=== PATIENT | male | born 1965 | race Caucasian/White ===

== ENCOUNTER → 2021-12-27 15:28 | Outpatient (BNVA) | payer MEDICAID, SELFPAY | PROVIDERS: Family Provider Nurse Practitioner Family; PCP Nurse Practitioner Family; Visit Provider Internal Medicine | DX: D64.9 Anemia, unspecified (principal); Z86.010 Personal history of colon polyps | CPT/HCPCS: 82607; 82746; 83550; 84443; 85045 ==

== ENCOUNTER 2022-01-02 06:04 | Day surgery (SDC) | payer MEDICAID, SELFPAY ==
[2021-12-29 15:45] VITALS: BMI 36.6
[2022-01-02 06:43] VITALS: BP 148/87; PULSE 74; RESP 18; TEMP 36.1; O2SAT 97
[2022-01-02] MEDS: sodium chloride 0.9% 1,000 ML 30 ML IV (06:47)
--- NOTE | 2022-01-02 07:02 | P.ANESASSM_ITS ---
Pre-Anesthetic Assessment Height/Weight: Height 1.83 m Weight 122.47 kg Temp Pulse Resp BP Pulse Ox 97.0 F L 74 18 148/87 97 01/02/22 06:43 01/02/22 06:43 01/02/22 06:43 01/02/22 06:43 01/02/22 06:43 Preop Diagnosis: anemia. Polyps. Operation Date: 01/02/22 08:00 Proposed Procedures p EGD [id number](Not Applicable) - Frank Rudd MD s Colonoscopy(Not Applicable) - Frank Rudd MD Familial anesthetic complications: None Was Beta Eve taken within 24 hours: Yes Was Clonidine taken within 24 hours: N/A Last intake: Intake Last Liquid Date 01/02/22 Last Liquid Time 04:00 Last Solid Date 01/01/22 Last Solid Time 08:00 Social No alcohol and No tobacco Exam alert, oriented x 3, clear to auscultation bilaterally and regular rate & rhythm Airway Mallampati: Class IV Dentition: other (no teeth) Pulmonary None reported CV/HEM Hypertension None reported Hepatic None reported GI None reported Metabolic Diabetes Mellitus, Hyperlipidemia and Morbid Obesity [facility] [place] None reported Neuropsych None reported Anesthetic Plan ASA status: 3 Anesthesia: MAC Risk of > 500 ml blood loss (7ml/kg in children): No Medications/Allergies Home Medications Medication Instructions Recorded Confirmed Last Taken Type carvedilol 25 mg tablet See Rx Instructions .ROUTE .COMPLEX 12/08/21 12/29/21 01/01/22 History gabapentin 300 mg capsule 300 mg PO TID 12/08/21 12/29/21 01/01/22 History hydrochlorothiazide 25 mg tablet 25 mg PO DAILY 12/08/21 12/29/21 01/01/22 History lantus 50 units INJECTION DAILY 12/08/21 12/29/21 01/01/22 History lisinopril 40 mg tablet 40 mg PO DAILY 12/08/21 12/29/21 01/01/22 History multivitamin (Daily Multi-Vitamin) 1 tab PO DAILY 12/08/21 12/29/21 01/01/22 History simvastatin 20 mg tablet 20 mg PO QPM 12/29/21 12/29/21 01/01/22 History Allergies Allergy/AdvReac Type Severity Reaction Status Date / Time No Known Allergies Allergy Verified 12/29/21 15:47 Current Medications Generic Name Dose Route Start Last Admin Trade Name Freq PRN Reason Stop Dose Admin Sodium Chloride 1,000 mls @ 30 mls/hr 01/02/22 06:30 01/02/22 06:47 Sodium Chloride 0.9% IV 01/03/22 06:29 30 mls/hr .Q24H MELE Administration Data Anesthesia Cardiac Studies: No Data to Display
--- NOTE | 2022-01-02 07:52 | W.PM.OPSFHP ---
Same Day Surgery H&P Indication for Procedure/HPI DATE OF PROCEDURE: January 02, 2022 CHIEF COMPLAINT/INDICATIONFOR SURGICAL PROCEDURE: Anemia and history of polyp PREOP DIAGNOSIS: anemia. Polyps. PLANNED PROCEDURE: Operation Date: 01/02/22 08:00 Proposed Procedures p EGD [id number](Not Applicable) - Frank Rudd MD s Colonoscopy(Not Applicable) - Frank Rudd MD Medications/Allergies* Home Medications Medication Instructions Recorded Confirmed Type carvedilol 25 mg tablet See Rx Instructions .ROUTE .COMPLEX 12/08/21 12/29/21 History gabapentin 300 mg capsule 300 mg PO TID 12/08/21 12/29/21 History hydrochlorothiazide 25 mg tablet 25 mg PO DAILY 12/08/21 12/29/21 History lantus 50 units INJECTION DAILY 12/08/21 12/29/21 History lisinopril 40 mg tablet 40 mg PO DAILY 12/08/21 12/29/21 History multivitamin (Daily Multi-Vitamin) 1 tab PO DAILY 12/08/21 12/29/21 History simvastatin 20 mg tablet 20 mg PO QPM 12/29/21 12/29/21 History Allergies/Adverse Reactions Allergy/AdvReac Type Severity Reaction Status Date / Time No Known Allergies Allergy Verified 12/29/21 15:47 Current Medications: Generic Name Dose Route Start Last Admin Trade Name Joaquin PRN Reason Stop Dose Admin Sodium Chloride 1,000 mls @ 30 mls/hr 01/02/22 06:30 01/02/22 06:47 Sodium Chloride 0.9% IV 01/03/22 06:29 30 mls/hr .Q24H MELE Administration Pertinent Exam Findings alert, oriented x 3, clear to auscultation bilaterally, regular rate & rhythm, operative site marked and procedure specific exam findings Recommendations Surgery/Procedure today Coding Level of Care Code Acute [employer] for Elisha Yee
[2022-01-02] MEDS: EPINEPHrine 1 mg/mL INJ XX (08:30)
[2022-01-02 08:52] VITALS: BP 122/71; PULSE 60; RESP 20; TEMP 36.8; O2SAT 91
[2022-01-02 09:00] VITALS: BP 123/72; PULSE 52; RESP 20; O2SAT 92
--- NOTE | 2022-01-02 09:05 | CT_ITS ---
WS: [id number] CT ABDOMEN AND PELVIS WITH CONTRAST HISTORY: masses in the sigmoid colon TECHNIQUE: Imaging performed of the abdomen and pelvis with IV contrast. Single phase imaging of the abdomen. Coronal and sagittal reformats are submitted. All CT scans at [facility] use at [address] one of these dose optimization techniques: automated exposure control; mA and/or kV adjustment per patient size (includes targeted exams where dose is matched to clinical indication); or iterative re construction. IV CONTRAST: Omnipaque 300; 95 mL IV. Oral contrast: Yes. DLP: 1928.3 mGy.cm COMPARISON: None available. Lower thorax: Lung bases are clear. Normal-sized heart. Very small pericardial effusion or pericardia l thickening. No hiatal hernia. Liver/biliary system: Normal size with no intrahepatic dilatation. Normal portal vein enhancement. Gallbladder: Normal. No gallstones or wall thickening. No pericholecystic fluid. Pancreas: Normal size pancreas and pancreatic duct. No adjacent inflammation. Spleen: Normal size with granulomata. Adrenal glands: Normal. Right kidney: Severe atrophy RIGHT kidney. There is still a small amount of enhancement within the co rtex. Mild perinephric stranding. Mild dilatation of the renal pelvis and proximal ureter. Change in caliber at the UP junction. Left kidney: Normal size kidney with numerous low-attenuation masses. Some of these masses cannot be further characterized. Cortical based solid mass in the lower pole measures 2.2 x 1.7 cm and may repr esent early renal cell neoplasm. Additional low-attenuation masses with the largest measuring 5.2 x 4 .8 cm in the lower pole. This is probably a cyst. No obstruction of the kidney. Aorta: Mild atherosclerosis with no aneurysm. Lymphadenopathy: None. Free fluid: None. GI tract: Moderately well distended stomach with oral contrast. No small bowel obstruction. The appen stephen is not definitely identified. The cecum is mobile and lies in the mid abdomen. There is no obstru ction. There is mild dilatation of the colon with air from the recent colonoscopy. No focal mass abut s identified. There is a tiny filling defect measuring 6 mm in the medially displaced cecum. This may be retained fecal material or tiny polyp. There are numerous diverticula throughout the colon. There are several clips from the recent biopsy performed during the colonoscopy in the descending colon. T here is a small amount of wall thickening measuring up to 1.6 cm in diameter and extending over lengt h of 3.5 cm. No free air. Abdominal wall: Ventral abdominal wall hernia contains fat only Pelvis: Well-distended urinary bladder. No free fluid or abscess. Bones: Unremarkable. CT/CT abdomen pelvis w con* [id number] IMPRESSION: 1. No free air or free fluid. 2. Focal mucosal thickening involving the distal descending colon at the site of recently placed clips at the biopsy site. The area of soft tissue thickening measures 1.6 cm in diameter extends over length of 3.5 cm. Differential includ es post biopsy changes and early colonic neoplasm. 3. Numerous indeterminate masses in the LEFT kidney. In the lower pole there i s a solid-appearing mass measuring 2.2 x 1.7 cm which could be an early renal c ell neoplasm. Additional indeterminate low-attenuation masses may be cysts. Rec ommend follow-up renal ultrasound to characterize further. 4. Severe atrophy RIGHT kidney. 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 5. Normal adrenal glands and liver.
[2022-01-02] MEDS: ferric carboxy (IVPB) 750 MG in sodium chloride 0.9% (100 ml) 100 ML 345 MG IV (09:18)
[2022-01-02 09:20] VITALS: BP 149/82; PULSE 68; RESP 20; O2SAT 97
[2022-01-02 10:30] VITALS: BP 155/104; PULSE 67; RESP 20; O2SAT 97
[2022-01-02 10:32] LABS: Carcinoembryonic Antigen 2.1 ng/mL (0.0-4.7)
[2022-01-02 11:00] VITALS: BP 158/99; PULSE 70; RESP 20; O2SAT 97
[2022-01-02] MEDS: iohexol 300 mg/mL 100 mL Btl IV (11:45)
[2022-01-02] MEDS: iohexol 300 mg/mL 50 mL Btl PO (11:45)
--- NOTE | 2022-01-02 13:23 | ANE.PACU2 ---
Inpatient post-anesthesia follow up: Airway intact: Yes Vital signs: Temperature 98.2 F Pulse Rate 70 Respiratory Rate 20 Blood Pressure 158/99 Pulse Oximetry 97 Oxygen Delivery Me thod Room Air Oxygen Flow Rate 4 Fraction of Inspir ed Oxygen Hydration adequate: Yes Nausea and vomiting: No Pain level: 1 Mental status: Baseline
[2022-01-03 11:47] LABS: H. Pylori / CLO Test Positive
== END 2022-01-02 12:13 | disposition home or self-care (01) ==
PROVIDERS: PCP Nurse Practitioner Family; Visit Provider Internal Medicine
PROC: 0DJ08ZZ Inspection of Upper Intestinal Tract, Via Natural or Artificial Opening Endoscopic (ICD-10-PCS; CPT 43235; principal; 2022-01-02 08:00)
PROC: 0DJD8ZZ Inspection of Lower Intestinal Tract, Via Natural or Artificial Opening Endoscopic (ICD-10-PCS; CPT 45378; 2022-01-02 08:00)
DX: D50.9 Iron deficiency anemia, unspecified (principal); D12.4 Benign neoplasm of descending colon; D12.5 Benign neoplasm of sigmoid colon; K26.7 Chronic duodenal ulcer without hemorrhage or perforation; I10 Essential (primary) hypertension; E11.9 Type 2 diabetes mellitus without complications; E78.5 Hyperlipidemia, unspecified; E66.01 Morbid (severe) obesity due to excess calories; Z68.36 Body mass index [BMI] 36.0-36.9, adult; Z79.4 Long term (current) use of insulin
CPT/HCPCS: 43239; 45385; 74177; 82378; 87077; 88305; J0171; J1439; J2704; J7030; Q9967

== ENCOUNTER 2023-04-12 08:41 | Outpatient (CLI) | payer MEDICAID, SELFPAY ==
--- NOTE | 2023-04-12 08:51 | US_ITS ---
WS: [id number] RENAL ULTRASOUND HISTORY: ABNORMAL FINDING ON DIAGNOSTIC IMAGING OF KIDNEY COMPARISON: 01/02/2022 CT TECHNIQUE: 2-D and color Doppler imaging of the kidney submitted. Right kidney: 7.2 cm x 3.9 cm x 3.7 cm. Cortex: 0.7 cm Small caliber highly echogenic RIGHT atrophied kidney. Very poor corticomedullary differentiation. Th ere is mild dilatation of the RIGHT renal pelvis which was also noted on the prior CT from 2021. No m ass identified. Left kidney: 14.9 cm x 7.2 cm x 8.0 cm. Cortex: 1.8 cm Mildly enlarged RIGHT kidney. Normal cortical medullary junction. There are several cysts with the la rgest in the mid kidney measuring 4.8 x 4.1 x 3.8 cm. Exophytic hypoechoic mass from the inferior phi e measures 3.1 x 3.3 x 3.0 cm. Mild peripheral vascularity is increased around this solid mass. Aorta: Normal. Urinary Bladder: Normal distention. IMPRESSION: 1. Severe atrophy of RIGHT kidney with severe chronic medical renal disease. Similar to the CT from . 2. Mild dilatation of the RIGHT renal pelvis. 3. Numerous cystic and solid appearing masses throughout the LEFT kidney. Solid-appearing mass from t he inferior pole measures 3.1 x 3.3 x 3.0 cm. This mass was also described on the CT of 01/02/2022 wit h very slight increase in size. On the CT mass measured 2.2 x 1.7 cm. Complex cyst versus small renal cell neoplasm within the differential. Recommend additional evaluation. Additional imaging may be CT or MRI with renal mass protocol. This would involve with and without contrast.
== END 2023-04-12 08:42 | disposition home or self-care (01) ==
LOC: RAD 08:43
PROVIDERS: PCP Nurse Practitioner Family; Visit Provider Nurse Practitioner
DX: R93.421 Abnormal radiologic findings on diagnostic imaging of right kidney (principal); N26.1 Atrophy of kidney (terminal); N28.89 Other specified disorders of kidney and ureter
CPT/HCPCS: 76770